=== PATIENT | female | born 1955 | race Two or more races ===

== ENCOUNTER 2018-03-07 06:15 | Day surgery (SDC) | payer OTHER ==
[2018-03-07] MEDS ORDERED: PERCOCET 5-3251 EACH PO (08:10)
[2018-03-07] MEDS ORDERED: RECTICARE30 GM TOP (08:11)
== END 2018-03-07 12:40 | disposition home or self-care (01) ==
LOC: CIR.AMB 06:15
DX: K60.1 Chronic anal fissure (principal)